=== PATIENT | female | born 1950 | race African-American/Black ===

== ENCOUNTER → 2018-04-17 | Outpatient (CLI) | payer MEDICARE, OTHER | LOC: OD 13:23 | PROVIDERS: ATTEND Otolaryngology | DX: J30.9 Allergic rhinitis, unspecified (principal) | CPT/HCPCS: 36415; 82785; 86003 ==

== ENCOUNTER 2019-06-03 08:20 | Day surgery (SDC) | payer OTHER, MEDICARE ==
--- NOTE | 2019-05-31 15:26 | EKG REPORT ---
SEVERITY:- BORDERLINE ECG - SINUS RHYTHM BORDERLINE T ABNORMALITIES, DIFFUSE LEADS : Confirmed by: Marcie Sheehan 31-May-2019 15:25:44
[~2019-06-03 08:20] MED LIST: BUPIVACAINE HCL 0.5%/EPI 1:200000 INJ 1.8 ML CARTRIDGE ONE
[2019-06-03] MEDS ORDERED: CLINDAMYCIN 900 MG/D5W RTU 900 MG/50 ML RTUPB IV PRN (09:06)
[2019-06-03] MEDS ORDERED: ONDANSETRON HCL INJ/PF 4 MG/2 ML SDV ONE (09:38)
[2019-06-03] MEDS ORDERED: MIDAZOLAM 2 MG/2 ML INJ ONE (09:38)
[2019-06-03] MEDS ORDERED: FENTANYL CITRATE INJ/PF 100 MCG/2 ML AMPUL ONE (09:39)
[2019-06-03] MEDS ORDERED: DEXAMETHASONE SOD PHOS INJ 10 MG/1 ML VIAL ONE (09:40)
[2019-06-03] MEDS ORDERED: PROPOFOL INJ 200 MG/20 ML VIAL IV ONE (09:40)
[2019-06-03] MEDS ORDERED: HYDROMORPHONE HCL INJ/PF 2 MG/ML AMPULE ONE (09:40)
--- NOTE | 2019-06-08 07:53 | Operative Report ---
[facility]ative Report[facility] Operative Report: DATE OF OPERATION: June 03, 2019 PREOPERATIVE DIAGNOSIS: 1. Chronic tonsillitis 2. Snoring disorder 3. Tonsil stones 4. Disorder of the uvula 5. Chronic gagging POSTOPERATIVE DIAGNOSIS: 1. Chronic tonsillitis 2. Snoring disorder 3. Tonsil stones 4. Disorder of the uvula 5. Chronic gagging PROCEDURE: 1. Uvulopalatalpharyngoplasty/UP3 and reduction of the uvula 2. Bilateral tonsillectomy patient age greater than 12 Primary Surgeon of Record: Dr. Tapan Winters OPTICAL EFFECTS LAYOUT PERSON: None Anesthesia Staff: LISA Villanueva ANESTHESIA: General Endotracheal Tube Anesthesia DRAINS: None SPONGE COUNT: Verified Needle Count: N/A SPECIMEN/MATERIALS FORWARD TO THE LAB: 1. Left and Right Tonsillar Tissue ESTIMATED BLOOD LOSS: 10 mL IV FLUIDS: 700 mL COMPLICATIONS: None Findings: 1. The tonsils were 1-2+ in size and endophytic in nature, they were cryptic in appearance, and there were tonsil stones present. 2. The soft palatal tissues were significantly redundant in nature and the uvula was significantly elongated and thickened and was noted to be resting on the patient's base of tongue area, and the uvula could almost be extended outside of the patient's mouth. INDICATIONS: This is a 69-year-old Afro[place] female who was seen and evaluated in the [place] [facility] office. The patient had been referred for and complained of loud consistent excessive snoring over the years despite 2 sleep studies with no sleep apnea noted. The patient also complains of excessive length of her uvula which causes chronic gagging over the years and the uvula will also swell intermittently over the years causing her to be very uncomfortable. After extensive discussion with the patient the recommendation and plan was to proceed with a bilateral tonsillectomy, uvulopalatopharyngoplasty/UP3, and reduction of the uvula. The procedures and all of the risks and complications were all discussed in detail with the patient. She voiced an understanding of the described surgical plan, were in agreement, and consent was obtained. DESCRIPTION OF OPERATIVE PROCEDURE: The patient was taken to the main operating room and was placed on the operating room table in the supine position. Appropriate monitors were placed. Using mask and IV access general anesthesia was induced. The patient was next transorally intubated without difficulty. The table was then rotated 90 and the patient was positioned and prepped for tonsil and adenoid surgery. The lips, teeth, tongue, and gums were inspected and noted to be without defect. The patient had a mouth gag inserted. It was opened and the patient was placed into suspension. There was a soft catheter passed through the nose that was used to suspend the soft palate. Findings are as noted above. At this point Marcaine with epinephrine was administered into the peritonsillar regions. The plasma J-hook device was used to dissect and remove the tonsils from the tonsillar fossae without difficulty. This was also used to provide adequate hemostasis. At this point the posterior tonsillar pillars were released from the soft palatal area with excessive tissue trimmed by making lateral soft palate incisions less than 1 cm in length. At this point 4-0 chromic suture was used to reapproximate tissues. Next, the distal aspect of the uvula was removed as well as excessive mucosa and 5-0 chromic suture was used to reapproximate mucosal margins of the uvula. Normal saline irrigation was performed and was suctioned. Adequate hemostasis was noted. The soft ca theter was released and removed from the patients nose. The patient was next released from suspension and the mouth gag was closed. It was opened again and there was again no bleeding noted. It was then removed from the patient's mouth without difficulty. There was no damage to the lips, teeth, tongue, or gums noted. The patient was then returned to the anesthesia staff and was allowed to emerge from general anesthesia. The patient was extubated in the operating room and was transported to the post anesthesia recovery unit in stable condition. There were no complications.
== END 2019-06-03 13:55 | disposition home or self-care (01) ==
LOC: SC 08:20
PROVIDERS: ATTEND Otolaryngology
DX: J35.3 Hypertrophy of tonsils with hypertrophy of adenoids (principal); J03.91 Acute recurrent tonsillitis, unspecified; G47.8 Other sleep disorders; R06.5 Mouth breathing; J35.01 Chronic tonsillitis; J35.8 Other chronic diseases of tonsils and adenoids; R06.83 Snoring; K13.79 Other lesions of oral mucosa; R09.89 Other specified symptoms and signs involving the circulatory and respiratory systems; K21.9 Gastro-esophageal reflux disease without esophagitis; J30.9 Allergic rhinitis, unspecified; E07.9 Disorder of thyroid, unspecified; E11.9 Type 2 diabetes mellitus without complications; D64.9 Anemia, unspecified; I10 Essential (primary) hypertension; Z79.84 Long term (current) use of oral hypoglycemic drugs; Z79.899 Other long term (current) drug therapy
CPT/HCPCS: 93005; 82962; 88304 ×2; 93010; 00160; 42145; J2250; J3490 ×2; J1170; J2405; J2704; J1100; 160; J3010